=== PATIENT | female | born 1985 | race Caucasian/White ===

== ENCOUNTER 2017-06-03 18:28 | Inpatient (IN) | payer OTHER ==
[2017-06-03] MEDS ORDERED: SODIUM CHLORIDE 1,000 ML IV STA ×2 (19:54→22:01)
[2017-06-03] MEDS ORDERED: ONDANSETRON 4 MG/2 ML VIAL IVPUSH ONE (19:54)
--- NOTE | 2017-06-03 19:57 | PDOC ---
History of Present Illness - General History Source: Patient, Old Records Exam Limitations: No Limitations <Kia Webb - Last Filed: 06/03/17 22:02> - General History Source: Patient Exam Limitations: No Limitations - History of Present Illness Initial Comments: 06/03/17 20:02 31 year old female with history of gastric sleeve (2014) who presents to the ED with intermittent worsening epigastric pain for 4 days. Patient reports the pain radiates to her back. She describes the pain as a sharp, burning severe pain. She reports associated intermittent vomiting and fever. She is unaware if food makes the pain worse. She states she has had similar pain in the past, but it was less severe and lasted for only 10 minutes at a time. She went to urgent care 3 days ago and had blood tests and X-Ray done. She was told to come to the ED if the pain worsened. She denies urinary complaints, chest pain, SOB. No known allergies. <Alejandrina Alva - Last Filed: 06/03/17 22:12> - General Chief Complaint: Pain Stated Complaint: STOMACH/BACK PAIN Time Seen by Provider: 06/03/17 19:47 Past History - Past Medical History Anemia: No Asthma: No Cancer: No Cardiac Disorders: No CVA: No COPD: No CHF: No Dementia: No Diabetes: No GI Disorders: No Disorders: No HTN: No Hypercholesterolemia: No Liver Disease: No Seizures: No Thyroid Disease: No - Surgical History Abdominal Surgery: Yes (GASTRIC SLEEVE) Appendectomy: Yes Cardiac Surgery: No Cholecystectomy: No Lung Surgery: No Neurologic Surgery: No Orthopedic Surgery: Yes (Right Knee Arthroscopy) - Immunization History Immunization Up to Date: Yes - Psycho/Social/Smoking Cessation Hx Suicidal Ideation: No Smoking History: Never smoked Have you smoked in the past 12 months: No Information on smoking cessation initiated: No Hx Alcohol Use: No Drug/Substance Use Hx: No Substance Use Type: None Hx Substance Use Treatment: No <Kia Webb - Last Filed: 06/03/17 22:02> <Alejandrina Alva - Last Filed: 06/03/17 22:12> - Past Medical History Allergies/Adverse Reactions: Allergies Allergy/AdvReac Type Severity Reaction Status Date / Time No Known Allergies Allergy Verified 06/03/17 18:59 Home Medications: Ambulatory Orders Famotidine [Pepcid] 20 mg PO BID #60 tablet 07/16/15 Oxycodone HCl/Acetaminophen [Percocet 5/325 -] 1 tab PO Q6H PRN #20 tablet 07/16 Review of Systems - Review of Systems Able to Perform ROS?: Yes Comments:: 06/03/17 20:02 GENERAL/CONSTITUTIONAL: (+) fever. No chills. No weakness. HEAD, EYES, EARS, NOSE AND THROAT: No change in vision. No ear pain or discharge. No sore throat. CARDIOVASCULAR: No chest pain or shortness of breath. RESPIRATORY: No cough, wheezing, or hemoptysis. GASTROINTESTINAL: (+) epigastric pain, vomiting. No diarrhea or constipation. GENITOURINARY: No dysuria, frequency, or change in urination. MUSCULOSKELETAL: (+) back pain. No joint or muscle swelling or pain. No neck pain. SKIN: No rash NEUROLOGIC: No headache, vertigo, loss of consciousness, or change in strength/ sensation. ENDOCRINE: No increased thirst. No abnormal weight change. HEMATOLOGIC/LYMPHATIC: No anemia, easy bleeding, or history of blood clots. ALLERGIC/IMMUNOLOGIC: No hives or skin allergy. <Alejandrina Alva - Last Filed: 06/03/17 22:12> *Physical Exam - Vital Signs Last Vital Signs Temp Pulse Resp BP Pulse Ox 98.8 F 88 17 100/71 100 06/03/17 19:00 06/03/17 19:00 06/03/17 19:00 06/03/17 19:00 06/03/17 19:00 <Kia Wbeb - Last Filed: 06/03/17 22:02> - Vital Signs Last Vital Signs Temp Pulse Resp BP Pulse Ox 98.8 F 88 17 100/71 100 06/03/17 19:00 06/03/17 19:00 06/03/17 19:00 06/03/17 19:00 06/03/17 19:00 - Physical Exam Comments: 06/03/17 20:03 GENERAL: Awake, alert, and fully oriented, in no acute distress HEAD: No signs of trauma EYES: PERRLA, EOMI, sclera anicteric, conjunctiva clear ENT: Auricles normal inspection, hearing grossly normal, nares patent, oropharynx clear without exudates. Moist mucosa NECK: Normal ROM, supple, no lymphadenopathy, JVD, or masses LUNGS: Breath sounds equal, clear to auscultation bilaterally. No wheezes, and no crackles HEART: Regular rate and rhythm, normal S1 and S2, no murmurs, rubs or gallops ABDOMEN: (+) epigastric and RUQ tenderness, questionable [place] sign. Soft, normoactive bowel sounds. No guarding, no rebound. No masses EXTREMITIES: Normal range of motion, no edema. No clubbing or cyanosis. No cords, erythema, or tenderness NEUROLOGICAL: Cranial nerves II through XII grossly intact. Normal speech, normal gait SKIN: Warm, Dry, normal turgor, no rashes or lesions noted. <Alejandrina Alva - Last Filed: 06/03/17 22:12> ED Treatment Course - LABORATORY CBC & Chemistry Diagram: 06/03/17 20:28 06/03/17 20:28 - RADIOLOGY Radiology Studies Ordered: Category Date Time Status ABDOMEN US [US] Stat Ultrasound 06/03/17 19:54 Ordered <Kia Webb - Last Filed: 06/03/17 22:02> - LABORATORY CBC & Chemistry Diagram: 06/03/17 20:28 06/03/17 20:28 - RADIOLOGY Radiograph Interpretation: 06/03/17 21:56 Abdominal US: Reported by Dr. Malena Nichols Impression: A few small non mobile gallstones with likely a small sludge at the fundus, borderline thickening of its wall and questionable trace of pericholecystic free fluid. Positive sonographic [place] sign. Findings may represent mild/early acute cholecystitis. Correlate clinically for further evaluation. Borderline hepatomegaly. <Alejandrina Alva - Last Filed: 06/03/17 22:12> Medical Decision Making - Medical Decision Making 06/03/17 19:55 31-year-old female with history of gastric sleeve in 2015 presents the emergency department with 4 day history of epigastric and right upper quadrant pain with intermittent vomiting. Differential diagnosis includes but is not limited to: Acute cholecystitis, cholelithiasis, pancreatitis, gastritis, GERD, atypical presentation of ACS, electrolyte abnormality, toxic/metabolic derangement, complication of gastric sleeve. Plan: 1. Labs 2. Urine analysis and urine 3. IV fluids for hydration 4. Abdominal ultrasound 5. Supportive care with pain management and anti-emetics 6. Observe and reevaluate 06/03/17 22:02 Addendum: Labs were reviewed and are noted in the EMR. Abdominal u/s shows thickened gall bladder wall with pericholecystic fluid and +sonographic Mills' s sign. The plan is to admit to the hospital with general surgery consult and IV abx as well as IVF hydration and pain management. <Kia Webb - Last Filed: 06/03/17 22:02> - Medical Decision Making 06/03/17 22:[address] Edilberto Vuong at 22:01. [phone]. Discussed case with Dr. Vuong at 22:05. Discussed case with Dr. John Westbrook at 22:09. [phone]. Dr. Westbrook will see the patient in the morning. <Alejandrina Alva - Last Filed: 06/03/17 22:12> *DC/Admit/Observation/Transfer - Discharge Dispostion Admit: Yes - Attestations Physician Attestion: 06/03/17 19:56 I, Dr. Kia Webb, attest that the scribes documentation that appears above has been prepared under my direction and personally reviewed by me in its entirety. I confirmed that the note above accurately reflects all work, treatment, procedures, and medical decision-making performed by me. <Kia Webb - Last Filed: 06/03/17 22:02> - Attestations Scribe Attestion: 06/03/17 20:03 Documentation prepared by Alejandrina Alva, acting as faculty i on call medical assistant for Kia Webb MD. <Alejandrina Alva - Last Filed: 06/03/17 22:12> Diagnosis at time of Disposition: Epigastric abdominal pain, Acute cholecystitis - Discharge Dispostion Condition at time of disposition: Stable - Referrals Referrals: Edilberto Vuong MD [Primary Care Provider] -
[2017-06-03 20:38] LABS: BASOPHIL 0.5 % (0-2.0); EOSINOPHIL 0.2 % (0-4.5); MCH 31.4 pg (25.7-33.7); MCHC 33.8 g/dl (32.0-36.0); MEAN CELL VOLUME 92.9 fl (80-96); MEAN PLT VOLUME 8.6 fl (7.5-11.1); NEUTROPHILS 72.9 % (42.8-82.8); PLATELET COUNT 174 K/MM3 (134-434); RDW 13.5 % (11.6-15.6); WHITE BLOOD COUNT 10.5 K/mm3 (4.0-10.0)
[2017-06-03] MEDS ORDERED: ONDANSETRON 4 MG/2 ML VIAL ONE (20:42)
[2017-06-03 20:55] LABS: URINE APPEARANCE TURBID; URINE BILIRUBIN NEGATIVE (NEGATIVE); URINE BLOOD NEGATIVE (NEGATIVE); URINE COLOR YELLOW; URINE GLUCOSE (UA) NEGATIVE (NEGATIVE); URINE KETONE TRACE (NEGATIVE); URINE LEUK ESTERASE NEGATIVE (NEGATIVE); URINE NITRITE NEGATIVE (NEGATIVE); URINE PROTEIN NEGATIVE (NEGATIVE); URINE UROBILINOGEN NEGATIVE mg/dL (0.2-1.0)
[2017-06-03 21:09] LABS: ALBUMIN 3.4 g/dl (3.4-5.0); ANION GAP 8 (8-16); CALCIUM 8.4 mg/dL (8.5-10.1); CO2 25 mmol/L (21-32); CREATININE 0.7 mg/dL (0.55-1.02); GLUCOSE,RANDOM 80 mg/dL (74-106); SGOT/AST 14 U/L (15-37); SGPT/ALT 17 U/L (12-78)
[2017-06-03 21:12] LABS: ALK PHOS 58 U/L (45-117); BILIRUBIN,TOTAL 0.8 mg/dL (0.2-1.0); CPK 301 IU/L (26-192); TOT PROT 6.9 g/dl (6.4-8.2); TROPONIN I < 0.02 ng/ml (0.00-0.05)
[2017-06-03] MEDS ORDERED: morphine CARPU-JECT 4 MG/1 ML DISP.SYRIN IVPUSH ONE (22:01)
[2017-06-03] MEDS ORDERED: PIPERACILLIN/TAZOB 3.375 GM/50 ML PRE-DOCKED IV ONE (22:01)
[2017-06-03 22:08] LABS: MAGNESIUM 2.2 mg/dL (1.8-2.4); PHOSPHOROUS 3.1 mg/dL (2.5-4.9)
[2017-06-03] MEDS ORDERED: morphine CARPU-JECT 4 MG/1 ML DISP.SYRIN ONE (22:21)
[2017-06-04] MEDS: SODIUM CHLORIDE 0.45%/POT 1,000 ML IV SCH (00:36)
[2017-06-04] MEDS ORDERED: HYDROmorphone HCL CARPU-JECT 2 MG/1 ML DISP.SYRIN IVPB PRN (01:34)
[2017-06-04 02:40] VITALS: BMI 27.8
[2017-06-04] MEDS ORDERED: PIPERACILLIN/TAZOBACTAM 3.375 GM VIAL IVPB ONE (05:27)
[2017-06-04] MEDS ORDERED: DEXTROSE 5%-WATER - 50 ML IVPB ONE (05:28)
[2017-06-04] MEDS ORDERED: PIPERACILLIN/TAZOB 3.375 GM 3.375 GM in DEXTROSE 5%-WATER - 50 ML IVPB SCH (06:00)
[2017-06-04 08:15] LABS: BASOPHIL 0.5 % (0-2.0); EOSINOPHIL 1.3 % (0-4.5); MCH 31.8 pg (25.7-33.7); MCHC 34.4 g/dl (32.0-36.0); MEAN CELL VOLUME 92.5 fl (80-96); MEAN PLT VOLUME 8.9 fl (7.5-11.1); NEUTROPHILS 59.2 % (42.8-82.8); PLATELET COUNT 138 K/MM3 (134-434); RDW 13.3 % (11.6-15.6); WHITE BLOOD COUNT 7.2 K/mm3 (4.0-10.0)
[2017-06-04 08:39] LABS: INR 1.2 (0.82-1.09); PROTHROMBIN TIME (PATIENT) 13.2 SEC (9.98-11.88)
[2017-06-04 08:54] LABS: ALBUMIN 2.7 g/dl (3.4-5.0); ALK PHOS 45 U/L (45-117); ANION GAP 7 (8-16); BILIRUBIN,TOTAL 1.5 mg/dL (0.2-1.0); CALCIUM 7.8 mg/dL (8.5-10.1); CO2 24 mmol/L (21-32); CREATININE 0.8 mg/dL (0.55-1.02); GLUCOSE,RANDOM 77 mg/dL (74-106); SGOT/AST 14 U/L (15-37); SGPT/ALT 15 U/L (12-78); TOT PROT 5.5 g/dl (6.4-8.2)
--- NOTE | 2017-06-04 08:59 | CONSULT ---
Consultation: REQUESTING PROVIDER: Dr. Edilberto Vuong CONSULT REQUEST: We have been asked to medically evaluate this patient for acute cholecystitis HISTORY OF PRESENT ILLNESS: 31yo woman with PMH of gastric sleeve surgery for morbid obesity (2014) who presents with worsening epigastric pain radiating to her back for the past 6 days. The patient states that she has been having waxing and waning epigastric pain lasting less than 30min for approximately the past year. She has not identified any discernible pattern to the pain nor if it is related to eating. She was at her [employer] when 6 days ago (, 05/30) she began to have severe burning epigastric pain lasting several hours with 10/10 severity radiating to her back. She had subjective fever and vomited once, which she states was green and non-bloody. Denies any further fever or emesis since . Denies dysuria, but describes hesitancy 2/2 to abdominal pain. She started [employer] training yesterday, but continued to have worsening pain and presented to the ED last night. Vital signs were stable. She was started on Zosyn. The patient does not have a history of chronic antibiotic use, and can not recall last time she was prescribed one. Denies recurrent UTIs or bronchitis. PSH: -gastric sleeve (Dr. Dial, 2014): has lost ~100lbs -appendectomy - at 14yo - -2009 Social: no tobacco, EtOH, or drug use REVIEW OF SYSTEMS: CONSTITUTIONAL: +fever Absent: fever, chills, diaphoresis, generalized weakness, malaise, loss of appetite, weight change HEENT: Absent: rhinorrhea, nasal congestion, throat pain, throat swelling, difficulty swallowing, mouth swelling, ear pain, eye pain, visual changes CARDIOVASCULAR: +chest pain Absent: chest pain, syncope, palpitations, irregular heart rate, lightheadedness , peripheral edema RESPIRATORY: +SOB Absent: cough, shortness of breath, dyspnea with exertion, orthopnea, wheezing, stridor, hemoptysis GASTROINTESTINAL: see HPI Absent: abdominal pain, abdominal distension, nausea, vomiting, diarrhea, constipation, melena, hematochezia GENITOURINARY: +hesitancy Absent: dysuria, frequency, urgency, hesitancy, hematuria, flank pain, genital pain MUSCULOSKELETAL: Absent: myalgia, arthralgia, joint swelling, back pain, neck pain SKIN: Absent: rash, itching, pallor HEMATOLOGIC/IMMUNOLOGIC: Absent: easy bleeding, easy bruising, lymphadenopathy, frequent infections ENDOCRINE: Absent: unexplained weight gain, unexplained weight loss, heat intolerance, cold intolerance NEUROLOGIC: Absent: headache, focal weakness or paresthesias, dizziness, unsteady gait, seizure, mental status changes, bladder or bowel incontinence PSYCHIATRIC: Absent: anxiety, depression, suicidal or homicidal ideation, hallucinations. PHYSICAL EXAMINATION Vital Signs - 24 hr 06/03/17 06/04/17 06/04/17 23:57 00:45 02:30 Temperature 98.7 F 98.7 F Pulse Rate 69 69 Pulse Rate [ 70 Apical] Respiratory 20 18 18 Rate Blood Pressure 100/62 100/62 Blood Pressure 106/72 [Left Arm] O2 Sat by Pulse 99 Oximetry (%) 06/04/17 06/04/17 02:41 07:06 Temperature 98.5 F Pulse Rate 70 Pulse Rate [ Apical] Respiratory 20 Rate Blood Pressure 92/55 Blood Pressure [Left Arm] O2 Sat by Pulse 100 Oximetry (%) GENERAL: Awake, alert, and fully oriented, in no acute distress. HEAD: Normal with no signs of trauma. EYES: PERRLA, EOMI, sclera anicteric, conjunctiva clear EARS, NOSE, THROAT: Oropharynx clear without exudates. Moist mucous membranes. NECK: supple, no cervical LAD LUNGS: CTAB, no wheezes, and no crackles HEART: rrr, normal S1 and S2 without murmur, rub or gallop. ABDOMEN: Soft, +RUQ tenderness, +Mills's sign, no guarding or rebound. normoactive bowel sounds : no suprapubic tenderness, no CVA tenderness. LOWER EXTREMITIES: 2+ pulses, warm, well-perfused. No peripheral edema. NEUROLOGICAL: Grossly intact, not formally tested. Normal speech. PSYCHIATRIC: Cooperative. Good eye contact. Appropriate mood and affect. SKIN: Warm, dry, normal turgor, no rashes or lesions noted. Laboratory Results - last 24 hr 06/03/17 06/04/17 06/04/17 23:26 07:30 07:30 WBC 7.2 D RBC 2.95 L D Hgb 9.4 L D Hct 27.3 L D MCV 92.5 MCH 31.8 MCHC 34.4 RDW 13.3 Plt Count 138 D MPV 8.9 Neutrophils % 59.2 Lymphocytes % 32.8 D Monocytes % 6.2 Eosinophils % 1.3 D Basophils % 0.5 INR 1.20 H Lactic Acid 0.7 Laboratory Tests 06/03/17 06/03/17 06/03/17 20:28 20:28 20:28 WBC 10.5 H D RBC 3.69 Hgb 11.6 Hct 34.3 MCV 92.9 MCH 31.4 MCHC 33.8 RDW 13.5 Plt Count 174 D MPV 8.6 Neutrophils % 72.9 D Lymphocytes % 20.0 D Monocytes % 6.4 Eosinophils % 0.2 D Basophils % 0.5 INR Sodium 138 Potassium 3.5 Chloride 105 Carbon Dioxide 25 Anion Gap 8 BUN 12 Creatinine 0.7 Creat Clearance w eGFR > 60 Random Glucose 80 Lactic Acid Calcium 8.4 L Phosphorus 3.1 Magnesium 2.2 Total Bilirubin 0.8 D AST 14 L D ALT 17 D Alkaline Phosphatase 58 Creatine Kinase 301 H Creatine Kinase Index 0.3 CK-MB (CK-2) < 1.000 Troponin I < 0.02 Total Protein 6.9 Albumin 3.4 Lipase 86 Urine Color Urine Appearance Urine pH Ur Specific [place] Urine Protein Urine Glucose (UA) Urine Ketones Urine Blood Urine Nitrite Urine Bilirubin Urine Urobilinogen Ur Leukocyte Esterase Urine HCG, Qual Urine Test Results Urine Color Yellow 06/03/17 20:43 Urine Appearance Turbid 06/03/17 20:43 Urine pH 5.0 (5.0-8.0) D 06/03/17 20:43 Ur Specific [place] 1.025 (1.005-1.025) 06/03/17 20:43 Urine Protein Negative (NEGATIVE) 06/03/17 20:43 Urine Glucose (UA) Negative (NEGATIVE) 06/03/17 20:43 Urine Ketones Trace (NEGATIVE) H 06/03/17 20:43 Urine Blood Negative (NEGATIVE) 06/03/17 20:43 Urine Nitrite Negative (NEGATIVE) 06/03/17 20:43 Urine Bilirubin Negative (NEGATIVE) 06/03/17 20:43 Ur Leukocyte Esterase Negative (NEGATIVE) 06/03/17 20:43 Blood Cx pending Abd US 06/03/17: Few small nonmobile gallstones (largest measured 6mm) with likely a small sludge at the fundus, borderline thickening of the its wall and questionable trace of pericholecystic free fluid. No intra or extrahepatic bile duct dilatation is seen. Positive sonographic Mills's sign. Active Medications Generic Name Dose Route Start Last Admin Trade Name Frekevin PRN Reason Stop Dose Admin Hydromorphone HCl 2 mg 06/04/17 01:34 Dilaudid Injection - IVPB Q6H PRN Potassium Chloride/Sodium Chloride 1,000 mls @ 100 mls/hr 06/03/17 22:45 00:36 1/2ns+20meq Kcl IV 100 mls/hr ASDIR ERICKSON Administration Piperacillin Sod/Tazobactam 50 mls @ 100 mls/hr 06/04/17 02:00 Sod 3.375 gm/ Dextrose IVPB 06/09/17 01:59 Q8H-IV ERICKSON Protocol Piperacillin Sod/Tazobactam 50 mls @ 100 mls/hr 06/04/17 06:00 06/04/17 05:41 Sod 3.375 gm/ Dextrose IVPB 06/04/17 14:29 100 mls/hr Q8H ERICKSON Administration ASSESSMENT/PLAN: 31yo woman with PMH of gastric sleeve surgery (2014) who presents with worsening RUQ pain radiating to her back for the past 6 days c/w acute cholecystitis. Abdominal US revealed several GB stones and sludge in the fundus , trace pericholecystic free fluid with no duct dilation. The patient is afebrile with no leukocytosis, and LFTs are wnl. Elevated CK could be 2/2 to intense physical activity from [employer] training, which she started yesterday (06/03). The patient does not have an extensive history of antibiotic use. #acute cholecystitis -d/c Zosyn -Start Metronidazole IVPB 500mg Q8h -Start Ceftriaxone IVPB 2g Daily -Repeat CBC -blood cx pending -awaiting surgery consultation Dispo: We will continue to follow the patient. Thank you for this consultative opportunity. d/w Dr. Robles RAMIREZ MD PGY-1 Visit type - Emergency Visit Emergency Visit: No - New Patient This patient is new to me today: Yes Date on this admission: 06/04/17 - Critical Care Critical Care patient: No
--- NOTE | 2017-06-04 10:21 | PN ---
Teaching Attending Note Name of Resident: Misa Smalls ATTENDING PHYSICIAN STATEMENT I saw and evaluated the patient. I reviewed the resident's note and discussed the case with the resident. I agree with the resident's findings and plan as documented. SUBJECTIVE: RUQ pain persists since no more vomiting no fevers no antibiotics as outpt OBJECTIVE: Vital Signs Period Temp Pulse Resp BP Sys/Farmer Pulse Ox Last 24 Hr 98.5 F-98.8 F 69-88 17-20 92-106/55-72 99-100 cor-rrr lungs clear abd soft,RUQ pain on palpation ext no edema CBC, BMP 06/04/17 07:30 06/04/17 07:00 blood culture pending ASSESSMENT AND PLAN: Acute cholycystitis- rocephin/flagyl surgical evaluation repeat CBC
[2017-06-04 10:46] LABS: MCH 32.2 pg (25.7-33.7); MCHC 34.8 g/dl (32.0-36.0); MEAN CELL VOLUME 92.6 fl (80-96); MEAN PLT VOLUME 8.3 fl (7.5-11.1); PLATELET COUNT 133 K/MM3 (134-434); RDW 13.3 % (11.6-15.6); WHITE BLOOD COUNT 6.1 K/mm3 (4.0-10.0)
[2017-06-04] MEDS: POTASSIUM CHLORIDE 10 MEQ PREMIX IVPB (POTASSIUM RIDER) IVPB SCH ×2 (10:48→11:38)
--- NOTE | 2017-06-04 11:07 | HP ---
Admitting History and Physical - Admission Chief Complaint: ruq pain x 3 days History Source: Patient Limitations to Obtaining History: No Limitations - Past Medical History Gastrointestinal: Yes: Other (pain s/p sleeve sx) ...LMP: 05/09/17 ...: No - Smoking History Smoking history: Never smoked Have you smoked in the past 12 months: No - Alcohol/Substance Use Hx Alcohol Use: No Home Medications - Allergies Allergies/Adverse Reactions: Allergies Allergy/AdvReac Type Severity Reaction Status Date / Time No Known Allergies Allergy Verified 06/03/17 18:59 - Home Medications Home Medications: Ambulatory Orders Famotidine [Pepcid] 20 mg PO BID #60 tablet 07/16/15 Oxycodone HCl/Acetaminophen [Percocet 5/325 -] 1 tab PO Q6H PRN #20 tablet 07/16 Family Disease History - Family Disease History Family History: Unremarkable Review of Systems - Review of Systems Gastrointestinal: reports: Abdominal Pain Physical Examination Vital Signs: Vital Signs Temperature 98.5 F 06/04/17 07:06 Pulse Rate 70 06/04/17 07:06 Respiratory Rate 20 06/04/17 07:06 Blood Pressure 92/55 06/04/17 07:06 O2 Sat by Pulse Oximetry (%) 100 06/04/17 02:41 Constitutional: Yes: Well Nourished Eyes: Yes: WNL HENT: Yes: WNL Neck: Yes: WNL Cardiovascular: Yes: WNL Respiratory: Yes: WNL Gastrointestinal: Yes: Tenderness, Epigastrium ...Rectal Exam: Yes: Deferred Renal/: Yes: WNL Breast(s): Yes: WNL Musculoskeletal: Yes: WNL Extremities: Yes: WNL Edema: No Peripheral Pulses WNL: Yes Integumentary: Yes: WNL Neurological: Yes: WNL ...Motor Strength: WNL Psychiatric: Yes: WNL Labs: CBC, BMP 06/04/17 10:25 06/04/17 07:00 Assessment/Plan keep npo sx in am
--- NOTE | 2017-06-04 12:23 | EKG ---
Test Reason : Blood Pressure : / mmHG Vent. Rate : 077 BPM Atrial Rate : 077 BPM P-R Int : 152 ms QRS Dur : 082 ms QT Int : 396 ms P-R-T Axes : 035 053 037 degrees QTc Int : 448 ms NORMAL SINUS RHYTHM NONSPECIFIC T WAVE ABNORMALITY WHEN COMPARED WITH ECG OF 14-MAY-2017 14:10, NO SIGNIFICANT CHANGE WAS FOUND Confirmed by JAMISON CROCKETT MD ([id number]) on 06/04/2017 12:23:07 PM Referred By: Confirmed By:JAMISON CROCKETT MD
--- NOTE | 2017-06-04 12:28 | PN ---
Progress Note (short form) - Note Progress Note: surgery pt seen and examined. full consult dictated. 31f lost 90lbs in last 2 years after gastric sleeve resection, has had "gas" pains for past 18 months with now 5 days of ruq and epigastric pain with vomiting after eating sea food. no one else got sick. labs wnl with u/s consistent with cholelithiasis and acute cholecystitis. On exam abd is soft with moderate ruq tenderness. Plan- clinically acute cholecysitits, cholelilthiasis. Agree with zosyn abx to cover e.coli and other gram - and biliary related tru. will give trial of clear liquids. If not better by tomorrow will need to move in the direction of surgery.
[2017-06-04] MEDS ORDERED: CEFTRIAXONE 2 GM in DEXTROSE 5%-WATER 100 ML IVPB SCH (13:00)
[2017-06-04] MEDS: METRONIDAZOLE 500 MG PREMIXED 100 ML IVPB SCH ×2 (13:22→18:04)
--- NOTE | 2017-06-04 13:38 | CONS ---
DATE OF CONSULTATION: 06/04/2017 REASON FOR CONSULTATION: Acute cholecystitis. This is an inpatient consultation at the request of Dr. Edilberto Vuong. BRIEF HISTORY: This is a 31-year-old female who lost 90 pounds after laparoscopic gastric sleeve resection in 2014. For the past 18 months, she has developed significant gas pain that is not associated with a particular food. She states for the past 4 days she has had right upper quadrant pain and epigastric pain with vomiting. This occurred after eating seafood, but no one else got sick. She came in to the hospital where she had an ultrasound done which was consistent with a gallbladder with gallstones, sludge, thickened wall, and pericholecystic fluid. There was also noted to be a sonographic Mills sign. The patient was admitted for acute cholecystitis and started on intravenous antibiotics. She has received Rocephin and Flagyl and now is ordered for Zosyn. All these choices are excellent as they cover E. coli and other gram-negative as well as biliary-related tru. Patient currently still has some pain, but she says she is slightly improved, and she states that she wishes to drink something. She denies diarrhea. She denies blood in her stool. She denies recent weight loss. PAST MEDICAL HISTORY: Otherwise negative. PAST SURGICAL HISTORY: As is in HPI. In addition, she has had an appendectomy, a right knee surgery, and a section. SOCIAL HISTORY: Negative for alcohol. Negative for tobacco. ALLERGIES: She has no known drug allergies. HOME MEDICATIONS: Include Pepcid. FAMILY HISTORY: Significant for brain cancer with her sister. REVIEW OF SYSTEMS: General: Denies fatigue or malaise. Cardiac: Denies chest pain or palpitations. Respiratory: Denies shortness of breath or wheeze. Gastrointestinal: As in HPI. Genitourinary: Denies dysuria. Musculoskeletal: Denies joint pain and joint swelling. Psychiatric: Denies anxiety, depression, or hearing voices. PHYSICAL EXAMINATION: General: This is a well-developed, well-nourished, 31-year-old female in no distress. Vital Signs: She is afebrile. Her vital signs are stable. HEENT: Her head is normocephalic. Her sclerae are anicteric. Neck: Supple. Chest: Clear. Abdomen: Soft. There are multiple laparoscopic scars. She has moderate right lower quadrant tenderness with mild rebound. She has multiple laparoscopic scars without obvious hernia. Extremities: No edema. LABORATORY DATA: On review of her laboratory, white blood cell count is normal at 6.1. Her chemistries are unremarkable with the exception of a mildly elevated total bilirubin of 1.5. Her lipase is normal. IMAGING: As in HPI. ASSESSMENT: This is a 31-year-old female with right upper quadrant pain, nausea, vomiting, a history of significant weight loss, and ultrasound showing signs and symptoms of acute cholecystitis. Clinically, this is acute cholecystitis. I agree with admission, and I agree with intravenous antibiotics and attempt at medical management. I will give a trial of clear-liquid diet. If the patient is not improved by tomorrow, we will likely need to move in the direction of surgery because that would indicate that medical management is failing. I will follow the patient closely with you. We will give a trial of clear liquids and keep n.p.o. after midnight with a re-assessment in the morning. Risks and benefits of surgery were explained to the patient as well as her in detail. These are including, but not limited to, the possibility of conversion to open, the possibility of common bile duct injury, the possibility of cystic duct stump leak, the possibility of injury to viscera, the possibility of blood loss requiring blood transfusion, the possibility of future obstruction, the possibility of future hernia, plus a multitude of medical risks including, but not limited to, cardiac, neurologic, pulmonary, and vascular complications, even . The patient understands these risks and is agreeable to surgery if necessary. DO LENNY SHARMA/[id number]
[2017-06-04] MEDS ORDERED: DEXTROSE 5%-WATER 100 ML IVPB ONE (14:12)
[2017-06-04] MEDS: PIPERACILLIN/TAZOB 3.375 GM 3.375 GM in DEXTROSE 5%-WATER - 50 ML IVPB SCH (20:41)
[2017-06-05] MEDS: SODIUM CHLORIDE 0.45%/POT 1,000 ML IV SCH ×2 (00:37→07:47)
[2017-06-05] MEDS: METRONIDAZOLE 500 MG PREMIXED 100 ML IVPB SCH ×3 (02:18→20:49)
--- NOTE | 2017-06-05 07:54 | PN ---
Progress Note, Physician Chief Complaint: ID Patient appears very comfortable with minimal pain some of whcih she attributes to muscle related from recent exercise. No fever chills Ceftriaxone and metronidazole - Current Medication List Current Medications: Active Medications Hydromorphone HCl (Dilaudid Injection -) 2 mg IVPB Q6H PRN Last Admin: 06/04/17 23:19 Dose: 2 mg Potassium Chloride/Sodium Chloride (1/2ns+20meq Kcl) 1,000 mls @ 100 mls/hr IV ASDIR ERICKSON Last Admin: 06/05/17 00:37 Dose: Not Given Ceftriaxone Sodium 2 gm/ (Dextrose) 100 mls @ 200 mls/hr IVPB DAILY ERICKSON Last Admin: 06/04/17 14:27 Dose: 200 mls/hr Metronidazole (Flagyl 500mg Premixed Ivpb -) 100 mls @ 100 mls/hr IVPB Q8H-IV ERICKSON Last Admin: 06/05/17 02:18 Dose: 100 mls/hr - Objective Vital Signs: Vital Signs Temperature 98.5 F 06/04/17 22:00 Pulse Rate 69 06/04/17 22:00 Respiratory Rate 20 06/04/17 22:00 Blood Pressure 94/54 06/04/17 22:00 O2 Sat by Pulse Oximetry (%) 100 06/04/17 21:00 Constitutional: Yes: Well Nourished, No Distress HENT: Yes: WNL, Atraumatic Neck: Yes: WNL, Supple Respiratory: Yes: WNL, Regular, CTA Bilaterally Gastrointestinal: Yes: WNL, Normal Bowel Sounds, Soft, Tenderness, Epigastrium, Other (mild tenderness). No: Tenderness Edema: No Labs: CBC, BMP 06/04/17 10:25 06/04/17 07:00 INR, PTT INR 1.20 (0.82-1.09) H 06/04/17 07:30 Problem List - Problems (1) Acute cholecystitis Code(s): K81.0 - ACUTE CHOLECYSTITIS Assessment/Plan Microbiology 06/03/17 23:26 Blood - Peripheral Venous Blood Culture - Preliminary NO GROWTH OBTAINED AFTER 24 HOURS, INCUBATION TO CONTINUE FOR 4 DAYS. 06/03/17 23:00 Blood - Peripheral Venous Blood Culture - Preliminary NO GROWTH OBTAINED AFTER 24 HOURS, INCUBATION TO CONTINUE FOR 4 DAYS. Laboratory Tests 06/04/17 06/04/17 07:00 10:25 WBC 6.1 Hgb 9.5 L Hct 27.3 L Plt Count 133 L Total Bilirubin 1.5 H D AST 14 L ALT 15 Alkaline Phosphatase 45 D Assessment Acute cholecystitis improved Plan She looks well today Would check with surgery as to plan for cholecystectomy Sue BARNARD
[2017-06-05] MEDS ORDERED: cefTRIAXone SODIUM 1 GM VIAL ONE (08:42)
[2017-06-05] MEDS ORDERED: DEXTROSE 5%-WATER - 50 ML IVPB ONE (08:42)
--- NOTE | 2017-06-05 09:43 | PN ---
Progress Note (short form) - Note Progress Note: surgery pt seen and examined. Discussed case with ID. Pt remains without fever. States she was feeling better after taking 2mg Dilaudid at midnight but pain just now recurred. She has some nausea as well. on exam abd is soft but still localized ruq tenderness bp 92/48 Plan- clinically acute cholecystitis. Still in pain despite IV abx. I am concerned that she will have a poor outcome with continued medical managment. Her blood pressure is about 10 points lower than yesterday. Will move in the direction of surgery. Cont IV abx.
[2017-06-05] MEDS ORDERED: ONDANSETRON 4 MG/2 ML VIAL IVPB PRN (09:47)
[2017-06-05] MEDS ORDERED: morphine CARPU-JECT 10 MG/1 ML DISP.SYRIN IVPB PRN (09:47)
[2017-06-05] MEDS ORDERED: IBUPROFEN 800 MG/8 ML IJ IVPB PRN (09:49)
[2017-06-05] MEDS ORDERED: CEFTRIAXONE 1 GM in DEXTROSE 5%-WATER - 50 ML IVPB SCH (10:00)
[2017-06-05] MEDS ORDERED: cefTRIAXone SODIUM 1 GM VIAL IVPB ONE (10:00)
[2017-06-05] MEDS ORDERED: BUPIVACAINE HCL/PF 0.5% (5MG/ML) 10 ML VIAL ONE (10:17)
[2017-06-05] MEDS ORDERED: HYDROmorphone HCL CARPU-JECT 1 MG/1 ML DISP.SYRIN IVPUSH PRN (10:40)
[2017-06-05] MEDS ORDERED: PROMETHAZINE HCL 25 MG/1 ML VIAL IVPUSH PRN (10:40)
--- NOTE | 2017-06-05 11:11 | OP ---
Operative Note - Note: Operative Date: 06/05/17 Pre-Operative Diagnosis: acute cholecysititis, cholelithiasis Operation: laparoscopic cholecystectomy, lavage Findings: hemorrhagic cholecystitis with hydrops Post-Operative Diagnosis: Same as Pre-op Surgeon: John Westbrook Rocket Engine Mechanic: Leonidas Kirk Anesthesiologist/EDUCATIONAL TECHNOLOGY SPECIALIST: Renny James Anesthesia: General Specimens Removed: gb Estimated Blood Loss (mls): 30
[2017-06-05] MEDS ORDERED: SODIUM CHLORIDE 0.45%/POT 1,000 ML IV SCH (11:53)
[2017-06-05] MEDS ORDERED: HYDROmorphone HCL CARPU-JECT 2 MG/1 ML DISP.SYRIN ONE (11:54)
[2017-06-05] MEDS ORDERED: HYDROmorphone HCL CARPU-JECT 2 MG/1 ML DISP.SYRIN IVPUSH ONE (11:55)
--- NOTE | 2017-06-05 12:02 | OP ---
DATE OF OPERATION: 06/05/2017 PREOPERATIVE DIAGNOSIS: Acute cholecystitis. POSTOPERATIVE DIAGNOSIS: Hemorrhagic cholecystitis, acute cholecystitis, complete hydrops. PROCEDURE: Laparoscopic cholecystectomy, drainage of abscess, peritoneal lavage. SURGEON: John Westbrook MD HUMAN RESOURCES BENEFITS COORDINATOR: Leonidas Kirk DO ANESTHESIA: Renny James MD (general) ESTIMATED BLOOD LOSS: Minimal. SPECIMEN: Gallbladder. INDICATION FOR PROCEDURE: This is a 31-year-old female admitted with acute onset of right upper quadrant pain lasting greater than 6 hours. Patient is exquisitely tender on physical examination, which is consistent with acute cholecystitis. Ultrasound findings demonstrated a thickened gallbladder wall. The patient clinically as well as radiographically has acute cholecystitis. The patient was initially managed medically but failed to improve and still had exquisite tenderness on examination with guarding and rebound and, therefore, she is here for a laparoscopic cholecystectomy. DESCRIPTION OF PROCEDURE: The patient was identified and appropriately positioned on the operating room table. After placement of general anesthesia, the abdomen was prepped and draped in the usual sterile fashion with ChloraPrep. An infraumbilical incision was made deep into the subcutaneous tissue. The fascia was divided sharply. The peritoneum was incised under direct vision. A Veress needle followed by a structural needle was placed. The remaining 3 ports were placed under direct vision as well. Following placement of the camera, the gallbladder was identified in the right upper quadrant. It had changes consistent with acute cholecystitis. There was edema in the gallbladder wall. There was edema in the peritoneum lining and reflection. The gallbladder was markedly distended and difficult to grasp. There was mild petechia throughout the gallbladder consistent with early hemorrhagic cholecystitis. The gallbladder was percutaneously decompressed and the abscess drained. In doing so, the contents was completely cleared consistent with complete hydrops. The gallbladder was reflected over the dome of the liver. Going from lateral to medial, the neck and infundibulum of the gallbladder was identified followed by the cystic duct. The cystic duct was circumferentially isolated, clipped, and then divided. The cystic artery identified in a similar fashion, clipped, and divided. The gallbladder was removed from the liver bed with electrocautery. Prior to complete removal, the liver bed was irrigated. The operative field was examined and noted to be hemostatic. The specimen was brought out through the umbilical port site. The right upper quadrant was copiously irrigated with warm saline. The irrigant was retrieved and noted to be clear. The operative field was examined and noted to be hemostatic. The ports were removed. Port sites were hemostatic. The fascia at the infraumbilical port sites were reapproximated with interrupted 0 Vicryl suture. All skin closed with 4-0 subcuticular Biosyn followed by Dermabond. At the conclusion of the case, sponge counts were correct. ATTESTATION: Brief operative note handwritten on the preprinted form. [facility] will be queried prior to giving any narcotics. Dm DIANA [id number] MTDD
--- NOTE | 2017-06-05 13:26 | PN ---
Physical Exam: SUBJECTIVE: Patient seen and examined. RUQ pain overnight. No fevers, chills, n/ v. OBJECTIVE: Vital Signs Period Temp Pulse Resp BP Sys/Farmer Pulse Ox Last 24 Hr 98.0 F-98.9 F 56-69 16-20 89-122/48-80 100-100 GENERAL: The patient is awake, alert, and fully oriented, in no acute distress. HEAD: Normal with no signs of trauma. EYES: Sclera anicteric, conjunctiva clear ENT: Oropharynx clear without exudates, moist mucous membranes. LUNGS: CTAB, no wheezes, no crackles, or rhonchi HEART: RRR, normal S1, S2 without murmur, rub or gallop. ABDOMEN: Soft, RUQ ttp, normoactive bowel sounds LE: 2+ pulses, warm, well-perfused, no edema. NEUROLOGICAL: grossly intact, not formally tested. normal speech PSYCH: Normal mood, normal affect. SKIN: Warm, dry, normal turgor, no rashes or lesions noted Microbiology 06/03/17 23:26 Blood - Peripheral Venous Blood Culture - Preliminary NO GROWTH OBTAINED AFTER 24 HOURS, INCUBATION TO CONTINUE FOR 4 DAYS. 06/03/17 23:00 Blood - Peripheral Venous Blood Culture - Preliminary NO GROWTH OBTAINED AFTER 24 HOURS, INCUBATION TO CONTINUE FOR 4 DAYS. Active Medications Acetaminophen (Tylenol -) 650 mg PO Q4H PRN PRN Reason: FEVER OR PAIN Enoxaparin Sodium (Lovenox -) 40 mg SQ DAILY [facility] Last Admin: 06/05/17 15:09 Dose: Not Given Hydromorphone HCl (Dilaudid Injection -) 1 mg IVPUSH [id number] PRN PRN Reason: PAIN Stop: 06/08/17 10:41 Pantoprazole Sodium 40 mg/ (Dextrose) 100 mls @ 200 mls/hr IVPB DAILY ERICKSON Last Admin: 06/05/17 15:06 Dose: 200 mls/hr Ceftriaxone Sodium 1 gm/ (Dextrose) 50 mls @ 100 mls/hr IVPB DAILY [facility] Metronidazole (Flagyl 500mg Premixed Ivpb -) 100 mls @ 100 mls/hr IVPB Q8H-IV ERICKSON Potassium Chloride/Sodium Chloride (1/2ns+20meq Kcl) 1,000 mls @ 100 mls/hr IV ASDIR ERICKSON Ibuprofen (Caldolor Injection -) 800 mg IVPB Q6H PRN PRN Reason: PAIN Morphine Sulfate (Morphine Injection -) 8 mg IVPB Q3H PRN PRN Reason: PAIN Ondansetron HCl (Zofran Injection) 4 mg IVPB Q6H PRN PRN Reason: NAUSEA Oxycodone HCl (Roxicodone -) 7.5 mg PO Q4H PRN PRN Reason: PAIN Promethazine HCl (Phenergan Injection -) 12.5 mg IVPUSH Q6H PRN PRN Reason: NAUSEA Stop: 06/05/17 16:41 ASSESSMENT/PLAN: 31yo woman with PMH of gastric sleeve surgery (2014) who presents with worsening RUQ pain radiating to her back with ultrasonic evidence of cholelithiasis/sludge in the fundus c/w acute cholecystitis. #acute cholecystitis -Continue Metronidazole IVPB 500mg Q8h -Continue Ceftriaxone IVPB 2g Daily -Follow blood culture (NGTD for 24h) -Cholecystectomy today Dispo: We will continue to follow the patient. Thank you for this consultative opportunity. d/w Dr. Sue RAMIREZ MD PGY-1 Visit type - Emergency Visit Emergency Visit: No - New Patient This patient is new to me today: No - Critical Care Critical Care patient: No
[2017-06-05 14:00] LABS: BASOPHIL 0.1 % (0-2.0); EOSINOPHIL 0.1 % (0-4.5); MCH 31.2 pg (25.7-33.7); MCHC 33.4 g/dl (32.0-36.0); MEAN CELL VOLUME 93.4 fl (80-96); MEAN PLT VOLUME 9.1 fl (7.5-11.1); NEUTROPHILS 91.1 % (42.8-82.8); PLATELET COUNT 149 K/MM3 (134-434); RDW 12.9 % (11.6-15.6); WHITE BLOOD COUNT 8.3 K/mm3 (4.0-10.0)
[2017-06-05 14:32] LABS: ANION GAP 7 (8-16); CALCIUM 8.3 mg/dL (8.5-10.1); CO2 25 mmol/L (21-32); CREATININE 0.6 mg/dL (0.55-1.02); GLUCOSE,RANDOM 103 mg/dL (74-106)
[2017-06-05] MEDS ORDERED: DEXTROSE 5%-WATER 100 ML IVPB ONE (15:00)
[2017-06-05] MEDS ORDERED: PANTOPRAZOLE SODIUM 40 MG VIAL ONE (15:00)
[2017-06-05 15:01] LABS: HIV 1 & 2 AB NEGATIVE; HIV 1 AGp24 NEGATIVE
[2017-06-05] MEDS: PANTOPRAZOLE SODIUM 40 MG in DEXTROSE 5%-WATER 100 ML IVPB SCH (15:06)
[2017-06-05] MEDS: ENOXAPARIN NA (PORCINE) 40 MG/0.4 ML DISP.SYRIN SQ SCH (15:09)
[2017-06-05] MEDS: oxyCODONE HCL 5 MG TABLET PO PRN (22:54)
[2017-06-05] MEDS: ACETAMINOPHEN 325 MG TABLET (FP) PO PRN (22:54)
[2017-06-06] MEDS: METRONIDAZOLE 500 MG PREMIXED 100 ML IVPB SCH ×2 (01:24→10:02)
[2017-06-06] MEDS: oxyCODONE HCL 5 MG TABLET PO PRN (06:55)
[2017-06-06] MEDS: ACETAMINOPHEN 325 MG TABLET (FP) PO PRN (06:55)
--- NOTE | 2017-06-06 07:42 | PN ---
Progress Note, Physician Chief Complaint: ID Post op Lap lynn yesterday operative findings noted Remains afebrile - Current Medication List Current Medications: Active Medications Acetaminophen (Tylenol -) 650 mg PO Q4H PRN PRN Reason: FEVER OR PAIN Last Admin: 06/06/17 06:55 Dose: 650 mg Enoxaparin Sodium (Lovenox -) 40 mg SQ DAILY ERICKSON Last Admin: 06/05/17 15:09 Dose: Not Given Hydromorphone HCl (Dilaudid Injection -) 1 mg IVPUSH [id number] PRN PRN Reason: PAIN Stop: 06/08/17 10:41 Pantoprazole Sodium 40 mg/ (Dextrose) 100 mls @ 200 mls/hr IVPB DAILY ERICKSON Last Admin: 06/05/17 15:06 Dose: 200 mls/hr Ceftriaxone Sodium 1 gm/ (Dextrose) 50 mls @ 100 mls/hr IVPB DAILY ERICKSON Metronidazole (Flagyl 500mg Premixed Ivpb -) 100 mls @ 100 mls/hr IVPB Q8H-IV ERICKSON Last Admin: 06/06/17 01:24 Dose: 100 mls/hr Potassium Chloride/Sodium Chloride (1/2ns+20meq Kcl) 1,000 mls @ 100 mls/hr IV ASDIR ERICKSON Last Admin: 06/05/17 22:53 Dose: 100 mls/hr Ibuprofen (Caldolor Injection -) 800 mg IVPB Q6H PRN PRN Reason: PAIN Last Admin: 06/05/17 16:59 Dose: 800 mg Morphine Sulfate (Morphine Injection -) 8 mg IVPB Q3H PRN PRN Reason: PAIN Ondansetron HCl (Zofran Injection) 4 mg IVPB Q6H PRN PRN Reason: NAUSEA Oxycodone HCl (Roxicodone -) 7.5 mg PO Q4H PRN PRN Reason: PAIN Last Admin: 06/06/17 06:55 Dose: 7.5 mg - Objective Vital Signs: Vital Signs Temperature 97.9 F 06/06/17 06:38 Pulse Rate 56 L 06/06/17 06:38 Respiratory Rate 20 06/06/17 06:38 Blood Pressure 88/57 06/06/17 06:38 O2 Sat by Pulse Oximetry (%) 96 06/05/17 21:00 Constitutional: Yes: Well Nourished, No Distress Neck: Yes: WNL, Supple Cardiovascular: Yes: Regular Rate and Rhythm, S1, S2. No: Murmur Respiratory: Yes: WNL, Regular, CTA Bilaterally Gastrointestinal: Yes: Soft. No: Tenderness, Tenderness, Rebound Edema: No Labs: CBC, BMP 06/05/17 13:50 06/05/17 13:50 INR, PTT INR 1.20 (0.82-1.09) H 06/04/17 07:30 Problem List - Problems (1) Acute cholecystitis Code(s): K81.0 - ACUTE CHOLECYSTITIS Assessment/Plan Microbiology 06/03/17 23:26 Blood - Peripheral Venous Blood Culture - Preliminary NO GROWTH OBTAINED AFTER 48 HOURS, INCUBATION TO CONTINUE FOR 3 DAYS. 06/03/17 23:00 Blood - Peripheral Venous Blood Culture - Preliminary NO GROWTH OBTAINED AFTER 48 HOURS, INCUBATION TO CONTINUE FOR 3 DAYS. Laboratory Tests 06/05/17 06/05/17 13:50 13:50 WBC 8.3 D Hgb 10.1 L Hct 30.3 L Plt Count 149 BUN 6 L D Creatinine 0.6 D Assessment Post op LAP cholecystectomy stable Plan Discharge planning Suspect does not need antibiotics unless surgery disagrees Will sign off Sue BARNARD
[2017-06-06 08:05] LABS: BASOPHIL 0.3 % (0-2.0); EOSINOPHIL 1.4 % (0-4.5); MCH 31.8 pg (25.7-33.7); MCHC 34.3 g/dl (32.0-36.0); MEAN CELL VOLUME 92.8 fl (80-96); MEAN PLT VOLUME 9.1 fl (7.5-11.1); NEUTROPHILS 70.4 % (42.8-82.8); PLATELET COUNT 147 K/MM3 (134-434); RDW 13.1 % (11.6-15.6); WHITE BLOOD COUNT 10.6 K/mm3 (4.0-10.0)
[2017-06-06 08:50] LABS: ANION GAP 8 (8-16); CALCIUM 8.3 mg/dL (8.5-10.1); CO2 25 mmol/L (21-32); CREATININE 0.7 mg/dL (0.55-1.02); GLUCOSE,RANDOM 96 mg/dL (74-106)
[2017-06-06] MEDS ORDERED: PANTOPRAZOLE SODIUM 40 MG VIAL ONE (09:26)
[2017-06-06] MEDS ORDERED: cefTRIAXone SODIUM 1 GM VIAL ONE (09:26)
[2017-06-06] MEDS ORDERED: DEXTROSE 5%-WATER 100 ML IVPB ONE (09:26)
[2017-06-06] MEDS ORDERED: DEXTROSE 5%-WATER - 50 ML IVPB ONE (09:26)
--- NOTE | 2017-06-06 09:29 | PN ---
Progress Note (short form) - Note Progress Note: Surgery Pt surgically stable for discharge. Does not need any further abx. no need for narcotics. ok to shower. ok to drive. no lifting. regular diet. follow up in about 2 weeks. [phone].
--- NOTE | 2017-06-06 09:42 | PN ---
Physical Exam: 24hr Events: Lap lynn yesterday. SUBJECTIVE: Patient seen and examined. Feeling well. No fever, nausea, or vomiting. +Flatus, no BM. OBJECTIVE: Vital Signs Period Temp Pulse Resp BP Sys/Farmer Pulse Ox Last 24 Hr 97.1 F-99.1 F 52-76 16-20 88-122/51-80 96-100 GENERAL: The patient is awake, alert, and fully oriented, in no acute distress. LUNGS: CTAB, no wheezes, no crackles, no accessory muscle use. HEART: Regular rate and rhythm, normal S1/S2 without murmur, rub or gallop. ABDOMEN: Soft, ntnd LOWER EXTREMITIES: 2+ pulses, warm, well-perfused, no edema. NEUROLOGICAL: Cranial nerves II through XII grossly intact. Normal speech, gait not observed. SKIN: Warm, dry, normal turgor, no rashes or lesions noted Laboratory Results - last 24 hr 06/05/17 06/05/17 06/05/17 13:50 13:50 13:50 WBC 8.3 D RBC 3.24 L Hgb 10.1 L Hct 30.3 L MCV 93.4 MCH 31.2 MCHC 33.4 RDW 12.9 Plt Count 149 MPV 9.1 Neutrophils % 91.1 H D Lymphocytes % 7.7 L D Monocytes % 1.0 L D Eosinophils % 0.1 D Basophils % 0.1 Sodium 137 Potassium 4.3 D Chloride 105 Carbon Dioxide 25 Anion Gap 7 L BUN 6 L D Creatinine 0.6 D Random Glucose 103 D Calcium 8.3 L HIV 1&2 Antibody Screen Negative HIV P24 Antigen Negative 06/06/17 06/06/17 06:30 06:30 WBC 10.6 H RBC 3.02 L Hgb 9.6 L Hct 28.1 L MCV 92.8 MCH 31.8 MCHC 34.3 RDW 13.1 Plt Count 147 MPV 9.1 Neutrophils % 70.4 D Lymphocytes % 21.9 D Monocytes % 6.0 D Eosinophils % 1.4 D Basophils % 0.3 Sodium 141 Potassium 3.9 Chloride 108 H Carbon Dioxide 25 Anion Gap 8 BUN 7 Creatinine 0.7 Random Glucose 96 Calcium 8.3 L HIV 1&2 Antibody Screen HIV P24 Antigen Active Medications Acetaminophen (Tylenol -) 650 mg PO Q4H PRN PRN Reason: FEVER OR PAIN Last Admin: 06/06/17 06:55 Dose: 650 mg Enoxaparin Sodium (Lovenox -) 40 mg SQ DAILY ERICKSON Last Admin: 06/05/17 15:09 Dose: Not Given Hydromorphone HCl (Dilaudid Injection -) 1 mg IVPUSH [id number] PRN PRN Reason: PAIN Stop: 06/08/17 10:41 Pantoprazole Sodium 40 mg/ (Dextrose) 100 mls @ 200 mls/hr IVPB DAILY ERICKSON Last Admin: 06/05/17 15:06 Dose: 200 mls/hr Ceftriaxone Sodium 1 gm/ (Dextrose) 50 mls @ 100 mls/hr IVPB DAILY ERICKSON Metronidazole (Flagyl 500mg Premixed Ivpb -) 100 mls @ 100 mls/hr IVPB Q8H-IV ERICKSON Last Admin: 06/06/17 01:24 Dose: 100 mls/hr Potassium Chloride/Sodium Chloride (1/2ns+20meq Kcl) 1,000 mls @ 100 mls/hr IV ASDIR ERICKSON Last Admin: 06/05/17 22:53 Dose: 100 mls/hr Ibuprofen (Caldolor Injection -) 800 mg IVPB Q6H PRN PRN Reason: PAIN Last Admin: 06/05/17 16:59 Dose: 800 mg Morphine Sulfate (Morphine Injection -) 8 mg IVPB Q3H PRN PRN Reason: PAIN Ondansetron HCl (Zofran Injection) 4 mg IVPB Q6H PRN PRN Reason: NAUSEA Oxycodone HCl (Roxicodone -) 7.5 mg PO Q4H PRN PRN Reason: PAIN Last Admin: 06/06/17 06:55 Dose: 7.5 mg ASSESSMENT/PLAN: 31yo woman POD1 s/p lap lynn for acute cholecystitis. Patient is afebrile, and stable post-operatively. No further need for antibiotics at this time. Patient discharged home today. d/w Dr. Sue RAMIREZ MD PGY-1 Visit type - Emergency Visit Emergency Visit: No - New Patient This patient is new to me today: No - Critical Care Critical Care patient: No
[2017-06-06] MEDS ORDERED: CEFTRIAXONE 1 GM in DEXTROSE 5%-WATER - 50 ML IVPB SCH (10:00)
[2017-06-06] MEDS: PANTOPRAZOLE SODIUM 40 MG in DEXTROSE 5%-WATER 100 ML IVPB SCH (10:02)
[2017-06-06] MEDS: ENOXAPARIN NA (PORCINE) 40 MG/0.4 ML DISP.SYRIN SQ SCH (10:04)
--- NOTE | 2017-06-06 10:55 | PN ---
Progress Note (short form) - Note Progress Note: Pot op day#1.S/P Laproscopic cholecystectomy under GA uneventful.Patient stable.No any anesthesia related problem.Patient DC from the anesthesia care.
[2017-06-06 12:16] VITALS: BP 95/63; PULSE 63; TEMP 98.7
--- NOTE | 2017-06-06 16:33 | PATH ---
Surgical Pathology Report Patient Name: HEATHER ISLAS Med. Rec. #: [id number] /Age/Gender: 1985 (Age: 31) / F Account: [id number] Location: [facility] MED/SURG Taken: 06/05/2017 Received: 06/05/2017 Reported: 06/06/2017 Physicians: Dm Hurt M.D. Specimen(s) Received GALLBLADDER Clinical History Acute cholecystitis, hemorrhagic cholecystitis, complete hydrops Final Diagnosis GALLBLADDER, CHOLECYSTECTOMY: ACUTE HEMORRHAGIC AND CHRONIC CHOLECYSTITIS, CHOLELITHIASIS. ONE BENIGN REACTIVE LYMPH NODE. Electronically Signed Omar Walton M.D. Gross Description Received in formalin, labeled "gallbladder" is a 7.5 x 3.0 x 1.8 cm gallbladder with a 0.2 cm in length portion of cystic duct attached. There is a 1.0 cm in greatest dimension periductal lymph node present. The outer surface is aguilar-pink and varies from smooth to shaggy. The lumen contains clear material as well as 4 brown, irregular choleliths ranging from 0.5-0.7 cm in greatest dimension. The mucosa is aguilar and focally eroded. The wall of the gallbladder averages 0.1 cm in thickness. Fire Chief sections are submitted in 2 cassettes as follows: 1-cystic duct margin and one whole bisected lymph node; 2-assisted sales representative gallbladder. 06/05/201706/05/2017
== END 2017-06-06 12:29 | disposition home or self-care (01) | DRG 418 ==
LOC: JER 18:28 → JERBED 22:00 → J8W 06-04 00:15
PROVIDERS: ADMIT Family Medicine; ATTEND Family Medicine
PROC: 0FT44ZZ Resection of Gallbladder, Percutaneous Endoscopic Approach (ICD-10-PCS; principal; 2017-06-04)
PROC: 3E1M38Z Irrigation of Peritoneal Cavity using Irrigating Substance, Percutaneous Approach (ICD-10-PCS; 2017-06-04)
DX: K80.00 Calculus of gallbladder with acute cholecystitis without obstruction (principal); K82.1 Hydrops of gallbladder; Z98.84 Bariatric surgery status
CPT/HCPCS: 36415; 71020-TC; 76705-TC; 80048; 80053; 81003; 83605; 83690; 83735; 84100; 84484; 84703; 85025; 85027; 85610; 87040; 87389; 88304-TC; 93005; 93010; 94010; 94760; 99282-25; J3480

== ENCOUNTER 2018-05-23 11:18 | Emergency (ER) | payer OTHER ==
[2018-05-23 11:44] VITALS: BP 101/62; PULSE 68; TEMP 98.6; BMI 31.6
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
== END 2018-05-23 12:29 | disposition home or self-care (01) ==
LOC: JERFT 11:18
DX: S16.1XXA Strain of muscle, fascia and tendon at neck level, initial encounter (principal); S46.811A Strain of other muscles, fascia and tendons at shoulder and upper arm level, right arm, initial encounter; S46.812A Strain of other muscles, fascia and tendons at shoulder and upper arm level, left arm, initial encounter; V43.52XA Car driver injured in collision with other type car in traffic accident, initial encounter; Y92.414 Local residential or business street as the place of occurrence of the external cause; Y99.0 Civilian activity done for income or pay; Y93.89 Activity, other specified
CPT/HCPCS: 72050-TC-FY; 73030-TC-LT-FY; 73030-TC-RT-FY; 99281-25

== ENCOUNTER 2019-07-09 08:54 | Day surgery (SDC) | payer OTHER ==
[2019-07-02 13:22] VITALS: BMI 41.8
[2019-07-09] MEDS ORDERED: LIDOCAINE HCL/PF 2% SDV 5ML VIAL ONE (09:13)
[2019-07-09] MEDS ORDERED: PROPOFOL 20 ML ONE (09:49)
[2019-07-09 12:46] VITALS: TEMP 98.3
[2019-07-09 12:48] VITALS: BP 99/68; PULSE 76
--- NOTE | 2019-07-15 10:56 | PATH ---
Surgical Pathology Report Patient Name: HEATHER ISLAS [facility]. Rec. #: [id number] /Age/Gender: 1985 (Age: 33) / F Account: [id number] Location: [facility] Taken: 07/09/2019 Received: 07/09/2019 Reported: 07/15/2019 Physicians: Luke Zabala M.D. Specimen(s) Received A: SECOND PORTION DUODENUM B: ANTRUM C: POSSIBLE POLYP GASTRIC ANTRUM Clinical History GERD Postoperative diagnosis: Gastritis, status post gastric sleeve Final Diagnosis A. DUODENUM, SECOND PORTION, BIOPSY: DUODENAL MUCOSA WITHOUT SIGNIFICANT PATHOLOGIC FINDINGS. B. GASTRIC ANTRUM, BIOPSY: GASTRIC ANTRAL MUCOSA WITH MILD CHRONIC GASTRITIS. IMMUNOHISTOCHEMICAL STAIN FOR H. PYLORI IS NEGATIVE. C. GASTRIC ANTRUM, POSSIBLE POLYP, BIOPSY: POLYPOID GASTRIC ANTRAL MUCOSA WITH MILD CHRONIC GASTRITIS. IMMUNOHISTOCHEMICAL STAIN FOR H. PYLORI IS NEGATIVE. Electronically Signed Rachel Benitez M.D. Gross Description A. Received in formalin, labeled "second portion duodenum" are 3 aguilar, irregular portions of soft tissue measuring 0.1-0.3 cm. in greatest dimension. The specimens are submitted in toto in one cassette. B. Received in formalin, labeled "gastric antrum" are 2 aguilar, irregular portions of soft tissue measuring 0.3 and 0.4 cm. in greatest dimension. The specimens are submitted in toto in one cassette. C. Received in formalin, labeled "possible polyp gastric antrum" is a aguilar, irregular portion of soft tissue measuring 0.3 cm. in greatest dimension. The specimen is submitted in toto in one cassette. MLSZ/07/09/2019 sanml/07/09/2019
== END 2019-07-09 10:50 | disposition home or self-care (01) ==
LOC: FASU-ENDO 08:54
PROVIDERS: ATTEND Internal Medicine Gastroenterology
PROC: 0DB68ZX Excision of Stomach, Via Natural or Artificial Opening Endoscopic, Diagnostic (ICD-10-PCS; 2019-07-09)
PROC: 0DB98ZX Excision of Duodenum, Via Natural or Artificial Opening Endoscopic, Diagnostic (ICD-10-PCS; principal; 2019-07-09 09:50)
DX: Z01.818 Encounter for other preprocedural examination (principal); K29.50 Unspecified chronic gastritis without bleeding; K21.9 Gastro-esophageal reflux disease without esophagitis; Z98.84 Bariatric surgery status
CPT/HCPCS: 84703; 88305-TC; 88342-TC

== ENCOUNTER 2022-09-02 10:33 | Emergency (ER) | payer OTHER ==
[2022-09-02 10:47] VITALS: BP 114/68; PULSE 78; RESP 18; TEMP 98.4; BMI 36.0
[2022-09-02] MEDS ORDERED: IBUPROFEN 400 MG TABLET (FP) PO ONE ×2 (10:51→10:54)
== END 2022-09-02 11:01 | disposition home or self-care (01) ==
LOC: FER 10:33
DX: S16.1XXA Strain of muscle, fascia and tendon at neck level, initial encounter (principal); V89.2XXA Person injured in unspecified motor-vehicle accident, traffic, initial encounter; Y92.9 Unspecified place or not applicable
CPT/HCPCS: 99283-25

== ENCOUNTER 2022-09-03 00:49 | Emergency (ER) | payer OTHER ==
[2022-09-03 00:58] VITALS: BP 95/66; RESP 70; TEMP 98; BMI 36.0
[2022-09-03] MEDS ORDERED: IBUPROFEN 600 MG TABLET (FP) PO ONE ×2 (01:14→01:16)
== END 2022-09-03 01:46 | disposition home or self-care (01) ==
LOC: FER 00:49
DX: S80.02XA Contusion of left knee, initial encounter (principal); S83.422A Sprain of lateral collateral ligament of left knee, initial encounter; W20.8XXA Other cause of strike by thrown, projected or falling object, initial encounter
CPT/HCPCS: 73560-TC-LT-FY; 99283-25

== ENCOUNTER 2023-04-30 19:57 | Inpatient (IN) | payer BC, OTHER ==
[2023-04-30 20:04] VITALS: RESP 18
[2023-04-30 21:53] LABS: BASO % 0.8 % (0-2.0); EOS % 0.5 % (0-4.5); HEMATOCRIT 34.6 % (32.4-45.2); HEMOGLOBIN 11.5 GM/dL (10.7-15.3); LYMPH % 65.2 % (8-40); MCH 29.7 pg (25.7-33.7); MCHC 33.3 g/dl (32.0-36.0); MEAN CELL VOLUME 89.1 fl (80-96); MEAN PLT VOLUME 9.9 fl (7.5-11.1); MONO % 10.1 % (3.8-10.2); NEUT % 23.4 % (42.8-82.8); PLATELET COUNT 109 10^3/uL (134-434); RBC 3.88 M/mm3 (3.60-5.2); RDW 12.9 % (11.6-15.6); WHITE BLOOD COUNT 3.4 K/mm3 (4.0-10.0)
[2023-04-30] MEDS ORDERED: DOXYCYCLINE INJECTION 100 MG in DEXTROSE 5%-WATER 100 ML IVPB ONE (22:12)
[2023-04-30] MEDS ORDERED: DOXYCYCLINE HYCLATE 100 MG VIAL ONE (22:28)
[2023-04-30 22:56] LABS: INR 1.17 (0.83-1.09); PROTHROMBIN TIME (PATIENT) 13.6 SEC (9.7-13.0)
[2023-04-30 22:59] LABS: ACTIVATED PTT 29.6 SECONDS (25.2-36.5)
[2023-04-30 23:12] LABS: CALCIUM 8.6 mg/dL (8.5-10.1)
[2023-04-30 23:14] LABS: ALBUMIN 3.1 g/dl (3.4-5.0)
[2023-04-30 23:17] LABS: CREATININE 0.9 mg/dL (0.55-1.3)
[2023-04-30 23:19] LABS: BILIRUBIN,TOTAL 0.6 mg/dL (0.2-1); TOT PROT 6.9 g/dl (6.4-8.2)
[2023-04-30 23:45] LABS: ANISOCYTOSIS 0; HELMET CELLS 0; HOWELL-JOLLY BODIES 0; MACROCYTOSIS 0; OVALOCYTE 0; PLATELET ESTIMATE DECREASED; ROULEAU 0; SICKELED CELLS 0; TARGET CELLS 0; TEAR DROP CELLS 0; TOXIC GRANULATION 0
[2023-05-01 04:01] VITALS: BMI 38.6
[2023-05-01] MEDS ORDERED: KETOROLAC TROMETHAMINE 30 MG/1 ML VIAL IVPUSH PRN (09:35)
[2023-05-01] MEDS ORDERED: HEPARIN NA (PORCINE) 5,000 UNITS/ML 1ML VIAL SQ SCH (10:00)
[2023-05-01] MEDS ORDERED: DOXYCYCLINE INJECTION 100 MG in DEXTROSE 5%-WATER 100 ML IVPB SCH (10:00)
[2023-05-01 13:56] LABS: HEMATOCRIT 35.1 % (32.4-45.2); HEMOGLOBIN 11.7 GM/dL (10.7-15.3); MCH 29.8 pg (25.7-33.7); MCHC 33.4 g/dl (32.0-36.0); MEAN CELL VOLUME 89.2 fl (80-96); MEAN PLT VOLUME 9.1 fl (7.5-11.1); PLATELET COUNT 121 10^3/uL (134-434); RBC 3.93 M/mm3 (3.60-5.2); RDW 13.1 % (11.6-15.6); WHITE BLOOD COUNT 3.9 K/mm3 (4.0-10.0)
[2023-05-01 14:24] LABS: ANISOCYTOSIS 1+; MACROCYTOSIS 0
[2023-05-01 15:24] VITALS: BP 99/55; PULSE 65; TEMP 97.9
== END 2023-05-01 16:30 | disposition left against medical advice (07) | DRG 816 ==
LOC: JER 19:57 → JERBED 05-01 00:20 → J5S 05-01 03:26
PROVIDERS: ADMIT Internal Medicine; ATTEND Family Medicine
DX: D72.819 Decreased white blood cell count, unspecified (principal); B88.2 Other arthropod infestations; D69.6 Thrombocytopenia, unspecified; R74.01 Elevation of levels of liver transaminase levels; Z98.84 Bariatric surgery status
CPT/HCPCS: 0241U-QW; 36415; 71046-TC-FY; 76705-TC; 80053; 82930; 83010; 84484; 84703; 85025; 85610; 85730; 86308; 86618; 86705; 86709; 87040; 87340; 87798; 93005; 93010; 99285-25; J1644

== ENCOUNTER 2023-06-05 16:19 | Day surgery (SDC) | payer BC ==
[2023-06-05] MEDS ORDERED: FERRIC CARBOXYMALTOSE 750 MG in SODIUM CHLORIDE 250 ML IVPB ONE (16:45)
[2023-06-05 19:34] VITALS: BP 98/66; PULSE 72; RESP 18; TEMP 98.1
== END 2023-06-05 19:00 | disposition home or self-care (01) ==
LOC: FINFUSION 16:19 → FM/S 16:20 → FINFUSION 19:00
PROVIDERS: ATTEND Family Medicine
PROC: 3E033GC Introduction of Other Therapeutic Substance into Peripheral Vein, Percutaneous Approach (ICD-10-PCS; principal; 2023-06-05)
DX: D50.9 Iron deficiency anemia, unspecified (principal)
CPT/HCPCS: 96365; J1439

== ENCOUNTER 2023-06-12 15:25 | Day surgery (SDC) | payer BC ==
[2023-06-12] MEDS ORDERED: FERRIC CARBOXYMALTOSE 750 MG in SODIUM CHLORIDE 250 ML IVPB ONE (16:00)
[2023-06-12 16:29] VITALS: BP 96/51; PULSE 73; RESP 18; TEMP 98.4
== END 2023-06-12 16:57 | disposition home or self-care (01) ==
LOC: FM/S 15:25 → FINFUSION 15:25
PROVIDERS: ATTEND Family Medicine
PROC: 3E033GC Introduction of Other Therapeutic Substance into Peripheral Vein, Percutaneous Approach (ICD-10-PCS; principal; 2023-06-12)
DX: D50.9 Iron deficiency anemia, unspecified (principal)
CPT/HCPCS: 96365; J1439